=== PATIENT | female | born 1980 | race Caucasian/White ===

== ENCOUNTER 2017-05-25 09:03 | Day surgery (SDC) | payer OTHER ==
[2017-05-23 10:51] VITALS: BMI 26.4
[~2017-05-25 09:03] MED LIST: LACTATED RINGERS 1,000 ML IV SCH; LIDOCAINE 1% 20 ML VIAL (10MG/ML) FOR IV START INTRADERMA PRN
[2017-05-25 09:42] VITALS: RESP 16; TEMP 98
[2017-05-25] MEDS ORDERED: PROPOFOL 10 MG/ML 20 ML VIAL IV ONE (10:08)
--- NOTE | 2017-05-25 10:25 | P.PCN ---
Date of Procedure: 05/25/17 Preoperative Diagnosis: Postoperative Diagnosis: Procedure(s) Performed: BRIEF HISTORY: Patient is a 37-year-old, pleasant, white female, scheduled for an upper endoscopy as a part of evaluation of long-standing history of GERD and intermittent dysphagia to solids.. PROCEDURE PERFORMED: Esophagogastroduodenoscopy WITH BIOPSY. PREOPERATIVE DIAGNOSIS: GERD/intermittent dysphagia to solids. IV sedation per anesthesia. PROCEDURE: After informed consent was obtained, the patient was brought into the endoscopy unit. IV sedation was administered by Anesthesia under continuous monitoring. Initially the Olympus GIF-140 video endoscope was inserted into the mouth. Esophagus intubated without any difficulty. It was gradually advanced into the stomach and duodenum and carefully examined. The bulb and the second part of the duodenum appeared normal. The scope at this time was withdrawn to the stomach, adequately insufflated with air, and upon careful examination, mucosa of the antrum, had mild gastritis and biopsies were done from this area. The body, cardia and the fundus appeared normal. The scope was then withdrawn into the esophagus. The GE junction was located at 39 cm from the incisors. The esophagus appeared normal. Biopsies were done from the distal and mid esophagus to rule out eosinophilic esophagitis. There were no erosions or ulcerations seen and the patient tolerated the procedure well. IMPRESSION: 1. Mild antral gastritis. 2. Normal-appearing esophagus with no evidence of esophagitis or esophageal stricture. RECOMMENDATIONS: The findings of this examination were discussed with the patient as well as her family. She was advised to follow with the biopsy results. In the meantime she will continue with Zantac 150 mg twice daily and follow antireflux measures. She will be seen in the office in 6 weeks. Implants: Indications for Procedure: Operative Findings: Description of Procedure:
[2017-05-25 10:46] VITALS: BP 110/73; PULSE 77
== END 2017-05-25 11:10 | disposition home or self-care (01) ==
LOC: ORWHC2ENDO 09:03
PROVIDERS: ATTEND Internal Medicine Gastroenterology
DX: K29.50 Unspecified chronic gastritis without bleeding (principal); K31.89 Other diseases of stomach and duodenum; Z79.1 Long term (current) use of non-steroidal anti-inflammatories (NSAID); Z79.899 Other long term (current) drug therapy; Z91.09 Other allergy status, other than to drugs and biological substances
CPT/HCPCS: 43239; 88305; 88342

== ENCOUNTER → 2021-03-09 | Outpatient (CLI) | payer OTHER ==
--- NOTE | 2021-03-09 11:47 | US ---
EXAMINATION TYPE: US abdomen complete DATE OF EXAM: 03/09/2021 COMPARISON: NONE CLINICAL HISTORY: R10.9 Right flank pain; R10.2 Pelvic pain. EXAM MEASUREMENTS: Liver Length: 13.8 cm Gallbladder Wall: 0.4 cm CBD: 0.3 cm Spleen: 6.8 cm Right Kidney: 11.2 x 3.9 x 4.9 cm Left Kidney: 11.4 x 4.3 x 5.0 cm Pancreas: Partially obscured by overlying bowel gas, portions visualized wnl Liver: wnl Gallbladder: cholelithiasis, comet tail artifact in the gallbladder wall, 3.6 mm wall slightly thick ened. No pericholecystic fluid. Evidence for sonographic Reynoso's sign: no CBD: wnll Spleen: wnl Right Kidney: No hydronephrosis or masses seen Left Kidney: No hydronephrosis or masses seen Upper IVC: wnl Abd Aorta: wnl The pancreas is partially obscured by overlying bowel gas. Cholelithiasis. There is comet tail artifact in the wall of the gallbladder which is slightly thicken ed. This is suggestive of adenomyomatosis. No pericholecystic fluid or sonographic Reynoso sign. No hydronephrosis or shadowing renal calculi.. IMPRESSION: 1. Cholelithiasis. Common tail artifact in the gallbladder wall with mild thickening suggestive of ad enomyomatosis. Surgical evaluation may be helpful. 2. The pancreas is partially obscured by overlying bowel gas.
--- NOTE | 2021-03-09 12:05 | US ---
EXAMINATION TYPE: US pelvic limited DATE OF EXAM: 03/09/2021 COMPARISON: NONE CLINICAL HISTORY: R10.9 Right flank pain; R10.2 Pelvic pain. TECHNIQUE Transabdominal sonographic images of the pelvis were acquired. Transvaginal sonographic im ages were medically necessary to better assess the following anatomy: EXAM MEASUREMENTS: Uterus: Surgically absent cm Right Ovary: Surgically absent Left Ovary: Surgically absent 1. Bilateral Adnexa: wnl 2. Posterior cul-de-sac: wnl IMPRESSION: 1. Status post hysterectomy and bilateral oophorectomy. No free fluid is seen.
== END | disposition home or self-care (01) ==
LOC: RADUSWWP 10:06
PROVIDERS: ATTEND Family Medicine
DX: Z90.710 Acquired absence of both cervix and uterus (principal); Z90.722 Acquired absence of ovaries, bilateral
CPT/HCPCS: 76700; 76857

== ENCOUNTER → 2021-04-23 | Outpatient (CLI) | payer OTHER | END | disposition home or self-care (01) ==

== ENCOUNTER 2021-04-27 09:18 | Day surgery (SDC) | payer OTHER ==
[2021-04-23 10:07] VITALS: BMI 26.8
--- NOTE | 2021-04-27 08:36 | P.GSHP ---
History of Present Illness H&P Date: 04/27/21 CHIEF COMPLAINT: Cholecystitis HISTORY OF PRESENT ILLNESS: The patient is a 41-year-old female who presents with history of epigastric including right upper quadrant abdominal pain. She underwent diagnostic studies for her gallbladder. Separately her clinical picture was consistent with cholecystitis. Now she presents for surgical intervention. PAST MEDICAL HISTORY: Please see list PAST SURGICAL HISTORY: Please see list MEDICATIONS: Please see list ALLERGIES: Please see list SOCIAL HISTORY: Please see list FAMILY HISTORY: Please see list REVIEW OF ORGAN SYSTEMS: CONSTITUTIONAL: No reports of fevers or chills. HEENT: Denies any troubles with the vision or hearing. ENDOCRINE: No reports of hypothyroidism. No diabetes. RESPIRATORY: No recent pneumonias. CARDIOVASCULAR: Denies chest pain or palpitations GI: No blood in stools or constipation. MUSCULOSKELETAL: Has occasional joint pain including back pain. NEURO: No seizure disorders or headaches. No recent stroke. PSYCH: No depression or suicidal ideation. GENITOURINARY: No active blood in urine. No urinary hesitancy. HEMATOLOGIC: No personal or family history of DVTs or pulmonary emboli. SKIN: No skin cancer. PHYSICAL EXAM: VITAL SIGNS: Afebrile vital signs stable GENERAL: Well-developed pleasant in no acute distress. HEENT: No scleral icterus. Extraocular movements grossly intact. Moist buccal mucosa. NECK: Supple without lymphadenopathy. CHEST: Unlabored respirations. Equal bilateral excursions. CARDIOVASCULAR: Regular rate regular rhythm rhythm. Distal 2+ pulses. ABDOMEN: Soft, nondistended. Tender along the epigastrium and right upper quadrant. MUSCULOSKELETAL: No clubbing, cyanosis, or edema. NEURO: Cranial nerves II to XII within normal limits. No focal or lateralizing signs. PSYCH: Alert and oriented to person, place and time. SKIN: Well-perfused good skin turgor. ASSESSMENT: 1. Epigastric and right upper quadrant abdominal pain 2. Chronic cholecystitis 3. Symptomatic gallstones. PLAN: 1. Will need a robotic cholecystectomy possible open. Benefits and risks were described. 2. Heparin for DVT prophylaxis 5000 units. 3. Antibiotic prophylaxis. Past Medical History Past Medical History: GERD/Reflux Additional Past Medical History / Comment(s): worsening heartburn. gallbladder disorder History of Any Multi-Drug Resistant Organisms: None Reported Past Surgical History: Hysterectomy, Tonsillectomy Additional Past Surgical History / Comment(s): egd Past Anesthesia/Blood Transfusion Reactions: Motion Sickness, Postoperative Nausea & Vomiting (PONV) Smoking Status: Former smoker - Past Family History Mother Family Medical History: No Reported History Medications and Allergies Home Medications Medication Instructions Recorded Confirmed Type Ibuprofen [Motrin] 800 mg PO Q6H PRN 05/23/17 04/23/21 History Estradiol [Estrace] 1 mg PO HS 04/23/21 04/23/21 History Levocetirizine Dihydrochloride 5 mg PO HS 04/23/21 04/23/21 History [Xyzal] Allergies Allergy/AdvReac Type Severity Reaction Status Date / Time adhesive tape AdvReac red skin Verified 04/23/21 09:56
[~2021-04-27 09:18] MED LIST changes: +ACETAMINOPHEN TAB 500 MG TAB PO PRN; +DEXAMETHASONE SOD PHOSPHATE 4 MG/ML 1 ML VIAL IV ONE; +GABAPENTIN 300 MG CAP PO PRN; +HEPARIN SODIUM,PORCINE/PF 5,000 UNIT/0.5 ML SYRINGE SQ PRN; +HYDROmorphone 0.5 MG/0.5 ML SYRINGE IVP PRN; +INDOCYANINE GREEN 25 MG VIAL IV PRN; -LIDOCAINE 1% 20 ML VIAL (10MG/ML) FOR IV START INTRADERMA PRN; +MELOXICAM 7.5 MG TAB PO PRN; +ONDANSETRON 4 MG/2 ML VIAL IVP ONE; +SCOPOLAMINE 1.5MG/72HR PATCH TRANSDERM PRN
[2021-04-27] MEDS ORDERED: KETOROLAC 15 MG/ML 1 ML VIAL ONE (11:09)
[2021-04-27] MEDS ORDERED: fentaNYL (PF) 50 MCG/ML 2 ML AMP ONE (11:09)
[2021-04-27] MEDS ORDERED: ROCURONIUM 10 MG/ML (5 ML VIAL) IV ONE (11:09)
[2021-04-27] MEDS ORDERED: NEOSTIGMINE 1 MG/ML 10 ML VIAL ONE (11:09)
[2021-04-27] MEDS ORDERED: PROPOFOL 10 MG/ML 20 ML VIAL IV ONE (11:09)
[2021-04-27] MEDS ORDERED: ePHEDrine SULFATE/0.9% NACL/PF 50 MG/5 ML SYRINGE IV ONE (11:09)
[2021-04-27] MEDS ORDERED: INDOCYANINE GREEN 25 MG VIAL IV ONE (11:09)
[2021-04-27] MEDS ORDERED: GLYCOPYRROLATE 0.2 MG/ML 2 ML VIAL ONE (11:09)
[2021-04-27] MEDS ORDERED: LIDOCAINE 1% INJ 10MG/ML (20 ML MDV) ONE (11:09)
[2021-04-27] MEDS ORDERED: SUCCINYLCHOLINE CHLORIDE 100 MG/5 ML SYR IV ONE (11:09)
[2021-04-27] MEDS ORDERED: MIDAZOLAM 2 MG/2 ML VIAL ONE (11:09)
[2021-04-27] MEDS ORDERED: LIDOCAINE 1%-EPI 1:100,000 20 ML VIAL SQ ONE (11:35)
[2021-04-27] MEDS ORDERED: LACTATED RINGERS 1,000 ML IV ONE (11:59)
[2021-04-27 12:18] VITALS: TEMP 98
[2021-04-27 12:28] VITALS: RESP 16
--- NOTE | 2021-04-27 12:47 | P.OP ---
Date of Procedure: 04/27/21 Description of Procedure: SURGEON: MARY ANNE GRIJALVA MD PREOPERATIVE DIAGNOSES: 1. Symptomatic cholelithiasis 2. Right upper quadrant abdominal pain POSTOPERATIVE DIAGNOSES: 1. Symptomatic cholelithiasis 2. Right upper quadrant abdominal pain 3. Chronic cholecystitis OPERATION: Robotic-assisted da Tiff Xi laparoscopic cholecystectomy, multiport with FIREFLY ESTIMATED BLOOD LOSS: 5 mL. SPECIMENS REMOVED: Gallbladder. COMPLICATIONS: None. OPERATIVE FINDINGS: 1. Singular gallstone over 1 cm identified INDICATIONS: The patient is a 41-year-old female who presents with symptomatic gallstones. Robotic assisted laparoscopic approach was described. Benefits and risks of the procedure including but not limited to bleeding, infection, injury to the biliary tree was described. Informed consent was obtained. DESCRIPTION OF PROCEDURE: Patient was brought to the operating room, placed in supine position. After general induction, the abdomen had been prepped and draped in standard sterile fashion. The robotic da Tiff XI system was primed. After a timeout protocol was performed, the patient had been prepped and draped in standard sterile fashion. The patient was injected with indocyanine green. A 5 mm 0 degrees laparoscopic trocar entry was performed along the left upper quadrant. The abdomen insufflated to 15 mmHg pressure which was tolerated well. Diagnostic laparoscopy demonstrated no injury to bowel viscera or mesentery. The liver surface was unremarkable. Next, two 8 mm robotic ports were placed along the right upper abdomen. The camera 8-mm port was maintained along the epigastrium. Another 8 mm port was placed along the left upper abdominal wall after exchanging the 5 mm port. Please note that the ports were placed at least 10 to 15 cm away from the target anatomy of the gallbladder. The robot was docked along the left lateral abdomen. The patient was repositioned in reverse Trendelenburg position. Using a grasper for arm 3, a grasper for arm 4, including hook cautery for arm 1, the robotic system was docked and primed as described. Instruments were interchanged by the janitorial assistant including hook cautery, Bovie cautery and clip appliers. I had sat at the console. Next attention was brought to the infundibulum and cystic structures. The infundibulum and cystic duct were dissected free from surrounding tissues. The cystic duct was isolated. FIREFLY was used to identify the cystic artery and cystic structures. A critical view of safety was obtained. Large PLASTIC clips were used throughout the entire case. Using a clip glove pairer, 2 clips were placed at the junction of the infundibulum and cystic duct. The cystic duct was divided between clips. Next, the cystic artery was similarly clipped and cauterized. Electro-Bovie cautery was used to remove the gallbladder from the hepatic fossa. Hemostasis was checked and found to be adequate. The robot was undocked. I re-scrubbed into the case. Using a 10 mm Endo Catch bag via the left upper quadrant incision, the specimen was removed from the abdominal cavity. All pneumoperitoneum instruments were evacuated from the abdominal cavity. The incisions were reapproximated using 4-0 Monocryl in an interrupted subcuticular fashion. Fascial defects were less than 8 mm in size. Please note along the trocar sites, local anesthetic was placed as a field block prior to insertion of all instruments. Liquid glue was applied to the skin. At the end of the procedure needle, sponge, and instrument count had been verified correct by the surgical garment inspector. The patient was transferred to postanesthesia care unit in stable condition. Intraoperative films were shared with the patient's family. Plan - Discharge Summary Discharge Rx Participant: No New Discharge Prescriptions: New Simethicone [Gas-X] 125 mg PO AC-TID PRN #20 capsule PRN Reason: Pain Ibuprofen 800 mg PO Q8HR PRN #30 tablet PRN Reason: Pain Acetaminophen Tab [Tylenol Tab] 1,000 mg PO Q6HR PRN #30 tablet PRN Reason: Pain Continue Ibuprofen [Motrin] 800 mg PO Q6H PRN PRN Reason: Pain Levocetirizine Dihydrochloride [Xyzal] 5 mg PO HS Estradiol [Estrace] 1 mg PO HS Discharge Medication List Ibuprofen [Motrin] 800 mg PO Q6H PRN 05/23/17 [History] Estradiol [Estrace] 1 mg PO HS 04/23/21 [History] Levocetirizine Dihydrochloride [Xyzal] 5 mg PO HS 04/23/21 [History] Acetaminophen Tab [Tylenol Tab] 1,000 mg PO Q6HR PRN #30 tablet 04/27/21 [Rx] Ibuprofen 800 mg PO Q8HR PRN #30 tablet 04/27/21 [Rx] Simethicone [Gas-X] 125 mg PO AC-TID PRN #20 capsule 04/27/21 [Rx] Follow up Appointment(s)/Referral(s): Mary Anne Grijalva MD [STAFF PHYSICIAN] - 05/05/21 Patient Instructions/Handouts: *[facility] - (Anesthesia) Discharge Instructions Outpatient Surgery, *[facility] - Scopalamine Patch Instructions, Laparoscopic Cholecystectomy (DC), Low Fat Diet (DC) Activity/Diet/Wound Care/Special Instructions: Recommend low-fat diet for the next 2 days. No lifting over 10 pounds in 2 weeks until May 11. May shower. No bath tub soaks for two weeks until May 11 Diet as tolerated. Use Tylenol, simethicone and ibuprofen or Aleve scheduled for the next 24-48 hours for best pain relief. Use ice along incisions for today to prevent swelling. Discharge Disposition: HOME SELF-CARE
[2021-04-27 13:16] VITALS: BP 105/67; PULSE 59
== END 2021-04-27 13:48 | disposition home or self-care (01) ==
LOC: OR 09:18
PROVIDERS: ATTEND Surgery Plastic and Reconstructive Surgery
DX: K80.10 Calculus of gallbladder with chronic cholecystitis without obstruction (principal); K21.9 Gastro-esophageal reflux disease without esophagitis; Z90.710 Acquired absence of both cervix and uterus; Z90.89 Acquired absence of other organs; Z98.890 Other specified postprocedural states; Z87.891 Personal history of nicotine dependence; Z79.3 Long term (current) use of hormonal contraceptives; Z79.899 Other long term (current) drug therapy; Z91.09 Other allergy status, other than to drugs and biological substances
CPT/HCPCS: 88304; 47564; J2250; J1100; J2710; J0690; J2405; J2001; J3010; J1885; J0330; J2704; J1644

== ENCOUNTER → 2021-05-29 | Outpatient (CLI) | payer OTHER ==
[2021-05-30 06:21] LABS: Chol/HDL Ratio 2.32; LDL Cholesterol,Calculated 74.6 mg/dL (0.0-131.0); VLDL Calculation 20.4 mg/dL (5.00-40.00)
--- NOTE | 2021-05-30 11:48 | US ---
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 Blurred vision TECHNIQUE: Carotid duplex ultrasound examination. Indirect Doppler criteria was utilized. EXAM MEASUREMENTS: RIGHT: Peak Systolic Velocity (PSV) cm/sec ----- Right CCA: 96.8 ----- Right ICA: 121.5 ----- Right ECA: 105.5 ICA/CCA ratio: 1.3 RIGHT: End Diastole cm/sec ----- Right CCA: 35.7 ----- Right ICA: 43.0 ----- Right ECA: 24.1 LEFT: Peak Systolic Velocity (PSV) cm/sec ----- Left CCA: 91.0 ----- Left ICA: 141.1 ----- Left ECA: 117.4 ICA/CCA ratio: 1.6 LEFT: End Diastole cm/sec ----- Left CCA: 29.9 ----- Left ICA: 54.4 ----- Left ECA: 18.9 VERTEBRALS (direction of flow): Right Vertebral: Antegrade Left Vertebral: Antegrade Rhythm: Normal Mild intimal thickening on both sides. IMPRESSION: Velocities are mildly elevated in the left ICA by Doppler. This may relate to turbulent flow especial ly since harman scale images show no significant ICA narrowing. If indicated, CT angiography can be p erformed for more definitive assessment. NASCET criteria was used in interpretation of this exam? Criteria for Assigning % of Stenosis / Diameter reduction (Estimation based on the indirect measurements of the internal carotid artery velocities (ICA PSV). 1. Normal (no stenosis)=ICA PSV < 125 cm/s: ratio < 2.0: ICA EDV<40 cm/s. 2. Less than 50% stenosis=ICA PSV < 125 cm/s: ratio < 2.0: ICA EDV<40 cm/s. 3. 50 to 69% stenosis=ICA PSV of 125 to 230 cm/s: ration 2.0 ? 4.0: ICA EDV 40-100 cm/s. 4. Greater than 70% stenosis to near occlusion= ICA PSV > 230 cm/s: ratio > 4.0: ICA EDV > 100 cm/s. 5. Near occlusion= ICA PSV velocities may be low or undetectable: variable ratio and ICA EDV. 6. Total occlusion=unable to detect flow.
== END | disposition home or self-care (01) ==
LOC: RADUSWWP 15:39
PROVIDERS: ATTEND Ophthalmology
DX: G45.3 Amaurosis fugax (principal)
CPT/HCPCS: 36415; 80061; 93880

== ENCOUNTER 2021-12-17 08:49 | Emergency (ER) | payer OTHER ==
[2021-12-17 08:53] VITALS: TEMP 97.6
[2021-12-17] MEDS ORDERED: diphenhydrAMINE 50 MG/ML 1 ML VIAL IVP STA (09:16)
[2021-12-17] MEDS ORDERED: methylPREDNISolone SOD SUCCI 125 MG/2 ML VIAL IV STA (09:16)
[2021-12-17] MEDS ORDERED: FAMOTIDINE 20 MG/2 ML VIAL IV STA (09:16)
--- NOTE | 2021-12-17 09:57 | ED ---
General Adult HPI - General Chief complaint: Allergic Reaction Stated complaint: Hives, post injection Time Seen by Provider: 12/17/21 08:50 Source: patient, RN notes reviewed, old records reviewed Mode of arrival: ambulatory Limitations: no limitations - History of Present Illness Initial comments: This is a 41-year-old female presents emergency part stating she was here today for a CAT scan of her abdomen they did use IV contrast. Patient states she was discharged from the outpatient facility and went to her car and she started having some hives in her neck that became very itchy and she had one on her face as well so she came back to the emergency department. Patient denies any difficulty breathing or difficulty swallowing. Patient states the hives already seemed to be somewhat disappearing. Patient denies any redness or hives anywhere else on her body. Patient denies any other problems at this time. - Related Data Home Medications Medication Instructions Recorded Confirmed Ibuprofen [Motrin] 800 mg PO Q6H PRN 05/23/17 04/23/21 Estradiol [Estrace] 1 mg PO HS 04/23/21 04/27/21 Levocetirizine Dihydrochloride 5 mg PO HS 04/23/21 04/27/21 [Xyzal] Previous Rx's Medication Instructions Recorded Acetaminophen Tab [Tylenol Tab] 1,000 mg PO Q6HR PRN #30 tablet 04/27/21 Ibuprofen 800 mg PO Q8HR PRN #30 tablet 04/27/21 Simethicone [Gas-X] 125 mg PO AC-TID PRN #20 capsule 04/27/21 predniSONE [Deltasone] 40 mg PO DAILY #8 tab 12/17/21 Allergies Allergy/AdvReac Type Severity Reaction Status Date / Time adhesive tape AdvReac red skin Verified 04/23/21 09:56 iv contrast Allergy Rash/Hives Uncoded 12/17/21 08:54 Review of Systems ROS Statement: Those systems with pertinent positive or pertinent negative responses have been documented in the HPI. ROS Other: All systems not noted in ROS Statement are negative. Past Medical History Past Medical History: GERD/Reflux Additional Past Medical History / Comment(s): worsening heartburn. gallbladder disorder History of Any Multi-Drug Resistant Organisms: None Reported Past Surgical History: Hysterectomy, Tonsillectomy Additional Past Surgical History / Comment(s): egd Past Anesthesia/Blood Transfusion Reactions: Motion Sickness, Postoperative Nausea & Vomiting (PONV) Past Psychological History: No Psychological Hx Reported Smoking Status: Former smoker Past Alcohol Use History: None Reported Past Drug Use History: None Reported - Past Family History Mother Family Medical History: No Reported History General Exam - General Exam Comments Initial Comments: GENERAL: Patient is well-developed and well-nourished. Patient is nontoxic and well- hydrated and is in mild distress. ENT: Neck is soft and supple. No significant lymphadenopathy is noted. Oropharynx is clear. Moist mucous membranes. Neck has full range of motion without eliciting any pain. EYES: The sclera were anicteric and conjunctiva were pink and moist. Extraocular movements were intact and pupils were equal round and reactive to light. Eyelids were unremarkable. PULMONARY: Unlabored respirations. Good breath sounds bilaterally. No audible rales rhonchi or wheezing was noted. CARDIOVASCULAR: There is a regular rate and rhythm without any murmurs gallops or rubs. ABDOMEN: Soft and nontender with normal bowel sounds. SKIN: Patient has some erythema about her neck and a little bit on her right cheek and she states those areas are itchy. NEUROLOGIC: Patient is alert and oriented x3. Cranial nerves II through XII are grossly intact. Motor and sensory are also intact. Normal speech, volume and content. Symmetrical smile. MUSCULOSKELETAL: Normal extremities with adequate strength and full range of motion. LYMPHATICS: No significant lymphadenopathy is noted PSYCHIATRIC: Normal psychiatric evaluation. Limitations: no limitations Course Vital Signs 12/17/21 08:50 Temperature 97.6 F Pulse Rate 89 Respiratory 18 Rate Blood Pressure 131/87 O2 Sat by Pulse 98 Oximetry Medical Decision Making - Medical Decision Making Patient was given Benadryl Solu-Medrol and Pepcid IV in the emergency department. She was feeling better but a little tired. Disposition Clinical Impression: Allergic reaction Disposition: HOME SELF-CARE Instructions (If sedation given, give patient instructions): General Allergic Reaction (ED) Prescriptions: predniSONE [Deltasone] 40 mg PO DAILY #8 tab Is patient prescribed a controlled substance at d/c from ED?: No Referrals: Marion Caldera MD [Primary Care Provider] - 1-2 days Time of Disposition: 09:57
[2021-12-17 10:24] VITALS: BP 128/82; PULSE 82; RESP 18
== END 2021-12-17 10:23 | disposition home or self-care (01) ==
LOC: EC 08:49
DX: T78.40XA Allergy, unspecified, initial encounter (principal); Z87.891 Personal history of nicotine dependence; Z91.09 Other allergy status, other than to drugs and biological substances; Z91.041 Radiographic dye allergy status
CPT/HCPCS: 99283; 96374; 96375; J1200; J2930

== ENCOUNTER → 2021-12-17 | Outpatient (CLI) | payer OTHER ==
--- NOTE | 2021-12-17 09:15 | CT ---
EXAMINATION TYPE: CT abdomen w con DATE OF EXAM: 12/17/2021 COMPARISON: CT dated 07/13/2016 HISTORY: Mid epigastric pain CT DLP: 362.8 mGycm Automated exposure control for dose reduction was used. TECHNIQUE: Helical acquisition of images was performed from the lung bases through the top of iliac crest to include entire abdomen. CONTRAST: Performed with Oral Contrast and with IV Contrast, patient injected with 100 mL of Isovue 300. FINDINGS: LUNG BASES: No significant abnormality is appreciated. LIVER/GB: Unremarkable liver. Previous cholecystectomy. PANCREAS: No significant abnormality is seen. SPLEEN: No significant abnormality is seen. ADRENALS: No significant abnormality is seen. KIDNEYS: No significant abnormality is seen. BOWEL: Unremarkable stomach, duodenum and visualized small bowel. Moderate fecal loading of the visu alized portion of the colon. Segments of nonspecific mild colonic wall thickening. LYMPH NODES: No pathologically enlarged lymph nodes OSSEOUS STRUCTURES: No aggressive bone lesion. FREE AIR: No free air is visualized. OTHER: No sizable ascites. Very small fat-containing umbilical hernia. IMPRESSION: MODERATE FECAL LOADING OF THE VISUALIZED PORTION OF THE COLON DEMONSTRATING SEGMENTS OF MILD NONSPECI FIC WALL THICKENING. OTHERWISE NO EVIDENCE OF ACUTE ABNORMALITY OR SUSPICIOUS LESION SEEN IN THE ABDO MEN. THE PELVIS WAS NOT INCLUDED IN THE SCAN. INCIDENTAL FINDINGS DESCRIBED ABOVE.
== END | disposition home or self-care (01) ==
LOC: RADCTMAIN 07:35
PROVIDERS: ATTEND Family Medicine
DX: R10.13 Epigastric pain (principal)
CPT/HCPCS: 74160; Q9967

== ENCOUNTER → 2022-08-25 | Outpatient (CLI) | payer OTHER ==
[2022-08-25 18:30] LABS: Basophils # (A) 0.08 X 10*3/uL (0.00-0.10); Basophils % (A) 1.1 %; Eosinophils # (A) 0.14 X 10*3/uL (0.04-0.35); Eosinophils % (A) 1.9 %; HCT 42.7 % (37.2-46.3); HGB 14.1 g/dL (12.0-15.0); Immature Grans, Automated 0.3 %; Lymphocytes % (A) 39.2 %; MCH 31.8 pg (27.0-32.0); MCV 96.2 fL (80.0-97.0); Mean Platelet Volume 11.4 fL (9.5-12.2); Monocytes # (A) 0.43 X 10*3/uL (0.20-1.00); Monocytes % (A) 5.8 %; NRBC Per 100 WBC 0 /100 WBCS (0.0-0.0); Neutrophils # (A) 3.83 X 10*3/uL (1.80-7.70); Neutrophils % (A) 51.7 %; Platelet Count 310 X 10*3/uL (140-440); RBC 4.44 X 10*6/uL (4.10-5.20); RDW 12.6 % (11.5-14.5)
[2022-08-25 18:52] LABS: Protein, Total 7.4 g/dL (6.2-8.2)
[2022-08-25 18:58] LABS: Rheumatoid Factor, Qnt <10 IU/mL (0-15)
[2022-08-25 19:00] LABS: ALT 24 U/L (8-44); AST 25 U/L (13-35); African American GFR (CKD) 131.2 (60.0-200.0); Albumin 5.1 g/dL (3.8-4.9); Albumin/Globulin Ratio 2.04 (1.60-3.17); Alkaline Phosphatase 82 U/L (41-126); BUN/Creat Ratio 11.17 Ratio (12.00-20.00); Blood Urea Nitrogen 6.7 mg/dL (9.0-27.0); C Reactive Protein <0.30 mg/dL (0.00-0.80); Calcium 9.9 mg/dL (8.7-10.3); Carbon Dioxide 26.3 mmol/L (20.0-27.5); Chloride 106 mmol/L (96-109); Globulin 2.5 g/dL (1.6-3.3); Glucose 99 mg/dL (70-110); Immunoglobulin M 73.7 mg/dL (40.0-280.0); Non-African American GFR(CKD) 113.2 (60.0-200.0); Potassium 3.7 mmol/L (3.5-5.5); Sodium 146 mmol/L (135-145); Total Protein 7.6 g/dL (6.2-8.2)
[2022-08-25 19:03] LABS: Erythrocyte Sedimentation Rate 12 mm/Hr (0-20)
[2022-08-25 19:26] LABS: Appearance,Urine Clear (Clear); Bilirubin,Urine Negative (Negative); Blood,Urine Negative (Negative); Color,Urine Yellow (Yellow); Ketones,Urine Trace mg/dL (Negative); Nitrite,Urine Negative (Negative); PH, Urine 5.5 (5.0-8.0); Specific Gravity,Urine 1.018 (1.001-1.030); Urobilinogen,Urine 0.2 (0.2,1.0)
[2022-08-26 12:55] LABS: Free Kappa Lt Chain Qnt, Serum 1.55 mg/dL (0.33-1.94); Free Lambda Lt Chain Qnt, Seru 0.95 mg/dL (0.57-2.63)
== END | disposition home or self-care (01) ==
LOC: LABWHC1 13:44
PROVIDERS: ATTEND Allergy & Immunology
DX: K59.00 Constipation, unspecified (principal); Q38.2 Macroglossia; R80.9 Proteinuria, unspecified; M62.89 Other specified disorders of muscle; R53.83 Other fatigue; K11.7 Disturbances of salivary secretion
CPT/HCPCS: 36415; 80053; 81003; 82595; 82784; 82785; 82787; 83883; 84165; 84439; 84443; 84480; 84481; 85025; 85652; 86038; 86140; 86235; 86334; 86431

== ENCOUNTER 2023-01-28 06:36 | Day surgery (SDC) | payer OTHER ==
[~2023-01-28 06:36] MED LIST changes: -ACETAMINOPHEN TAB 500 MG TAB PO PRN; -DEXAMETHASONE SOD PHOSPHATE 4 MG/ML 1 ML VIAL IV ONE; -GABAPENTIN 300 MG CAP PO PRN; -HEPARIN SODIUM,PORCINE/PF 5,000 UNIT/0.5 ML SYRINGE SQ PRN; -HYDROmorphone 0.5 MG/0.5 ML SYRINGE IVP PRN; -INDOCYANINE GREEN 25 MG VIAL IV PRN; +LIDOCAINE 1% (10MG/ML) FOR IV START INTRADERMA PRN; -MELOXICAM 7.5 MG TAB PO PRN; -ONDANSETRON 4 MG/2 ML VIAL IVP ONE; -SCOPOLAMINE 1.5MG/72HR PATCH TRANSDERM PRN
[2023-01-28 07:11] VITALS: TEMP 98.2
[2023-01-28] MEDS ORDERED: LIDOCAINE 2% INJ 20 MG/ML (2 ML VIAL) ONE (07:43)
[2023-01-28] MEDS ORDERED: PROPOFOL 10 MG/ML 20 ML VIAL IV ONE (07:43)
[2023-01-28] MEDS ORDERED: fentaNYL (PF) 50 MCG/ML 2 ML AMP ONE (07:43)
[2023-01-28] MEDS ORDERED: MIDAZOLAM 2 MG/2 ML VIAL ONE (07:43)
--- NOTE | 2023-01-28 08:07 | P.PCN ---
Date of Procedure: 01/28/23 Procedure(s) Performed: Brief history: Patient is a pleasant 42-year-old white female scheduled for an elective upper endoscopy as well as colonoscopy as a part of evaluation of abdominal pain, intermittent dysphagia to solids, not to bowel movements. She is being evaluated by Dr. Gilbert for possible systemic amyloidosis. Procedure performed: Esophagogastroduodenoscopy with biopsy Colonoscopy with random biopsy and snare polypectomy Preoperative diagnosis: GERD and intermittent dysphagia to solids Change in bowel habits Anesthesia: MAC Procedure: After informed consent was obtained from the patient was brought into the endoscopy unit and IV sedation was administered by anesthesia under continuous monitoring. Initially upper endoscopy was done. The Olympus GF 160 video endoscope was inserted inserted into the mouth and esophagus intubated without any difficulty and was gradually advanced into the stomach and duodenum and carefully examined. The bulb and second part of the duodenum appeared normal. The scope was then withdrawn into the stomach adequately insufflated with air and upon careful examination the antrum and body, cardia and fundus appeared normal. The scope was then withdrawn into the esophagus. The GE junction was located at 40 cm to the incisors. It appeared regular with no erythema erosions or ulcerations. Rest of the esophagus appeared normal. Patient tolerated the procedure well. At this time the patient continued to remain sedation. Initial digital rectal examination was normal. Olympus CF 160 video colonoscope was then inserted into the rectum and gradually advanced to the cecum without any difficulty. Careful examination was performed as the scope was gradually being withdrawn. The prep was excellent. The cecum, had a 1 cm polyp that was removed by snare polypectomy. Rest of the ascending colon, transverse colon, descending colon, sigmoid colon and rectum appeared normal. Random biopsies were done from ascending and descending colon to rule out amyloidosis. Retroflexion was performed in the rectum and no lesions were noted. Patient tolerated the procedure well. Impression: 1. Upper endoscopy revealed mild antral gastritis but no evidence of esophagitis 2. Colonoscopy revealed a 1 cm cecal polyp status post polypectomy. Rest of the colon appeared normal Recommendations: Findings of this examination were discussed with the patient as well as her family. She was advised to follow with the biopsy results and follow with Dr. Gilbert as scheduled. If the biopsies adenoma she can have a repeat colonoscopy in 3 years.
[2023-01-28 08:25] VITALS: PULSE 58; RESP 18
[2023-01-28 08:33] VITALS: BP 98/67
== END 2023-01-28 08:58 | disposition home or self-care (01) ==
LOC: ORWHC2ENDO 06:36
PROVIDERS: ATTEND Internal Medicine Gastroenterology
DX: D12.0 Benign neoplasm of cecum (principal); K29.50 Unspecified chronic gastritis without bleeding; K21.9 Gastro-esophageal reflux disease without esophagitis; Z91.041 Radiographic dye allergy status; Z91.048 Other nonmedicinal substance allergy status; F17.210 Nicotine dependence, cigarettes, uncomplicated; Z79.899 Other long term (current) drug therapy
CPT/HCPCS: 88305; 45380; 45385; 43239; J2250; J3010; J2704; J2001

== ENCOUNTER → 2023-10-31 | Outpatient (CLI) | payer OTHER ==
--- NOTE | 2023-11-01 12:51 | MM ---
Reason for Exam: Screening (asymptomatic). Last mammogram was performed 1 year(s) and 2 month(s) ago. Risk Values: Amy 5 year model risk: 0.4%. NCI Lifetime model risk: 6.6%. Prior Study Comparison: 09/15/2022 Bilateral Screening Mammogram, [facility]. Tissue Density: The breast tissue is heterogeneously dense. This may lower the sensitivity of mammography. Findings: Analyzed By CAD. There is no suspicious group of microcalcifications or new suspicious mass. Overall Assessment: Negative, BI-RAD 1 Management: Screening Mammogram of both breasts in [address] [facility] will attempt to contact patient to return for supplemental views and ultrasound if indicated. Patient should continue monthly self-breast exams. A clinical breast exam by your physician is recommended on an annual basis. This exam should not preclude additional follow-up of suspicious palpable abnormalities. Note on Amy scores and lifetime risk: 1. A Amy score greater than 3% is considered moderate risk. If this is the case, consider specialist referral to assess eligibility for a risk reducing agent. 2. If overall lifetime risk for the development of breast cancer is 20% or higher, the patient may qualify for future screening with alternating mammogram and breast MRI. Electronically signed and approved by: Oswaldo Austin DO
== END | disposition home or self-care (01) ==
LOC: RADMAMWWP 15:55
PROVIDERS: ATTEND Family Medicine
DX: Z12.31 Encounter for screening mammogram for malignant neoplasm of breast (principal)
CPT/HCPCS: 77063; 77067

== ENCOUNTER → 2025-04-30 | Outpatient (CLI) | payer OTHER ==
[2025-04-30 15:48] LABS: Basophils # (A) 0.07 X 10*3/uL (0.00-0.10); Basophils % (A) 1.1 %; Eosinophils # (A) 0.15 X 10*3/uL (0.04-0.35); Eosinophils % (A) 2.3 %; HCT 40.4 % (37.2-46.3); HGB 13.1 g/dL (12.0-15.0); Immature Grans, Automated 0.20 %; Lymphocytes # (A) 2.33 X 10*3/uL (0.90-5.00); Lymphocytes % (A) 36.1 %; MCH 31.0 pg (27.0-32.0); MCHC 32.4 g/dL (32.0-37.0); MCV 95.7 FL (80.0-97.0); Monocytes # (A) 0.45 X 10*3/uL (0.20-1.00); Monocytes % (A) 7.0 %; NRBC Per 100 WBC 0 X 10*3/uL (0.00-0.01); Neutrophils # (A) 3.45 X 10*3/uL (1.80-7.70); Neutrophils % (A) 53.3 %; Platelet Count 261 X 10*3/uL (140-440); RBC 4.22 X 10*6/uL (4.10-5.20); RDW 12.9 % (11.5-14.5); WBC 6.46 X 10*3/uL (4.50-10.00)
[2025-04-30 16:01] LABS: ALT 52 U/L (8-44); AST 45 U/L (13-35); Albumin 4.5 g/dL (3.8-4.9); Albumin/Globulin Ratio 2.25 Ratio (1.60-3.17); Alkaline Phosphatase 116 U/L (41-126); Anion Gap 12.40 mmol/L (4.00-12.00); BUN/Creat Ratio 23.60 Ratio (12.00-20.00); Blood Urea Nitrogen 11.8 mg/dL (9.0-27.0); Calcium 9.1 mg/dL (8.7-10.3); Carbon Dioxide 23.6 mmol/L (21.6-31.8); Chloride 107 mmol/L (96-109); Cholesterol 151.00 mg/dL (0.00-200.00); Globulin 2.0 g/dL (1.6-3.3); Glucose 83 mg/dL (70-110); HDL Cholesterol 71.60 mg/dL (40.00-60.00); LDL Cholesterol,Calculated 71.8 mg/dL (0.0-131.0); Potassium 4.4 mmol/L (3.5-5.5); Sodium 143 mmol/L (135-145); Total Protein 6.5 g/dL (6.2-8.2); Triglycerides 38.10 mg/dL (0.00-149.00); VLDL Calculation 7.62 mg/dL (5.00-40.00)
== END | disposition home or self-care (01) ==
LOC: LABWHC1 10:39
PROVIDERS: ATTEND Family Medicine
DX: Z00.00 Encounter for general adult medical examination without abnormal findings (principal); E55.9 Vitamin D deficiency, unspecified
CPT/HCPCS: 36415; 80053; 80061; 82306; 84443; 85025